=== PATIENT | female | born 1995 | race African-American/Black ===

== ENCOUNTER 2016-04-14 16:29 | Emergency (ER) | payer OTHER ==
[2016-04-14 16:47] VITALS: BP 137/68; PULSE 89; TEMP 98.2; BMI 18.6
[2016-04-14] MEDS ORDERED: TOBRAMYCIN 0.3% OPHTH SOLN 5 ML BOTTLE OD ONE (17:44)
--- NOTE | 2016-04-14 17:50 | PDOC ---
History of Present Illness - General Chief Complaint: Ear Problem Stated Complaint: RT EAR PAIN/RT EYE PAIN Time Seen by Provider: 04/14/16 16:43 History Source: Patient Exam Limitations: No Limitations - History of Present Illness Initial Comments: 04/14/16 17:45 Patient here with complaints of congestion to ears, crackling and popping sensation. And redness swelling and mild tenderness to the right eye. 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 - Psycho/Social/Smoking Cessation Hx Suicidal Ideation: No Smoking History: Never smoked Review of Systems - Review of Systems Able to Perform ROS?: Yes Is the patient limited Macanese proficient: Yes Constitutional: Yes: Symptoms Reported, See HPI, Malaise. No: Chills, Fever HEENTM: Yes: Symptoms Reported, See HPI, Eye Pain, Tearing (but no drainage thus far), Ear Pain (and crackling), Nose Congestion (with posterior sinus drainage). No: Blurred Vision Respiratory: Yes: See HPI. No: Cough Musculoskeletal: No: Symptoms Reported Neurological: Yes: Symptoms reported, See HPI, Headache (primarily frontal) All Other Systems: Reviewed and Negative *Physical Exam - Vital Signs Last Vital Signs Temp Pulse Resp BP Pulse Ox 98.2 F 89 19 137/68 99 04/14/16 16:44 04/14/16 16:44 04/14/16 16:44 04/14/16 16:44 04/14/16 16:44 - Physical Exam General Appearance: Yes: Nourished, Appropriately Dressed, Apparent Distress, Mild Distress HEENT: positive: PEDRO, TMs Normal, Pharynx Normal, Nasal Congestion, Rhinorrhea (clear ), Other (erythematous conjunctiva to the right eye, with tearing, and some purulent drainage noted. Vision is within normal limits.) Neck: positive: Supple, Lymphadenopathy (R), Lymphadenopathy (L). negative: Tender Respiratory/Chest: positive: Lungs Clear, Normal Breath Sounds. negative: Rhonchi, Wheezing Cardiovascular: positive: Regular Rate Gastrointestinal/Abdominal: positive: Normal Bowel Sounds, Soft Extremity: positive: Normal Capillary Refill, Normal Inspection, Normal Range of Motion Integumentary: positive: Dry Neurologic: positive: intravenous therapy nurse II-XII NML intact, Fully Oriented, Alert, Normal Mood/ Affect, Normal Response, Motor Strength 5/5 *DC/Admit/Observation/Transfer Diagnosis at time of Disposition: Conjunctivitis Qualifiers: Conjunctivitis type: acute Acute conjunctivitis type: bacterial Laterality: right Qualified Code(s): H10.31 - Unspecified acute conjunctivitis, right eye - Discharge Dispostion Disposition: HOME Condition at time of disposition: Stable Admit: No - Referrals Referrals: Esteban Pritchard MD [Primary Care Provider] - - Patient Instructions Printed Discharge Instructions: DI for Common Cold, DI for Conjunctivitis Additional Instructions: Rest, avoid rubbing eyes Wash hands frequently as this is very contagious Wash hands, use eye drops as directed, wash hands after use Do not share eyedrops with other person to may become infected as this will infect them Avoid contact with others until redness and discharge is gone from eyes. Followup with ophthalmology or private physician as needed TOBRAMYCIN drops 2 drops to right eye 4 times a day for 5 days Rest, drink lots of fluids: Teas, water, soups, Pedialyte Saltwater gargles Steamy showers/seem to face break up mucus Avoid contact with others until fevers and cough resolved Lots of handwashing and good hygiene Continue [id number] medications for symptomatic relief Tylenol or Motrin for fever and pain Followup with private physician in one to 2 days as needed Return to emergency department for worsened symptoms, fevers, dehydration - Post Discharge Activity Work/School Note: Back to Work
[2016-04-14] MEDS ORDERED: TOBRAMYCIN 0.3% OPHTH SOLN 5 ML BOTTLE ONE (17:51)
== END 2016-04-14 17:59 | disposition home or self-care (01) ==
LOC: JERFT 16:29
DX: H10.31 Unspecified acute conjunctivitis, right eye (principal); J06.9 Acute upper respiratory infection, unspecified
CPT/HCPCS: 99281-25

== ENCOUNTER 2016-08-01 12:18 | Emergency (ER) | payer OTHER ==
[2016-08-01 12:22] VITALS: BP 119/74; PULSE 96; TEMP 98.4; BMI 18.6
[2016-08-01] MEDS ORDERED: IBUPROFEN 400 MG TABLET (FP) PO ONE ×2 (12:48)
--- NOTE | 2016-08-01 12:51 | PDOC ---
History of Present Illness - General Chief Complaint: Sore Throat Stated Complaint: SORE THROAT Time Seen by Provider: 08/01/16 12:27 History Source: Patient - History of Present Illness Timing/Duration: reports: other Severity: reports: moderate Associated Symptoms: reports: earache, sore throat. denies: cough, facial pain , fever/chills, headache, nasal congestion, nasal drainage Past History - Past Medical History Allergies/Adverse Reactions: Allergies Allergy/AdvReac Type Severity Reaction Status Date / Time No Known Allergies Allergy Verified 08/01/16 12:22 Home Medications: Ambulatory Orders NK [No Known Home Medication] 04/14/16 Other medical history: PATIENT DENIES MEDICAL HISTORY - Psycho/Social/Smoking Cessation Hx Suicidal Ideation: No Smoking History: Never smoked Hx Alcohol Use: Yes (OCCASIONALLYT) Drug/Substance Use Hx: No Review of Systems - Review of Systems Constitutional: No: Chills, Fever HEENTM: Yes: Ear Pain, Throat Pain. No: Nose Congestion Respiratory: No: Cough *Physical Exam - Vital Signs Last Vital Signs Temp Pulse Resp BP Pulse Ox 98.4 F 96 H 18 119/74 98 08/01/16 12:19 08/01/16 12:19 08/01/16 12:19 08/01/16 12:19 08/01/16 12:19 - Physical Exam General Appearance: Yes: Appropriately Dressed. No: Apparent Distress HEENT: positive: Normal Voice, TMs Normal, Tonsillar Exudate. negative: Scleral Icterus (R), Scleral Icterus (L) Neck: positive: Supple. negative: Lymphadenopathy (R), Lymphadenopathy (L) Respiratory/Chest: negative: Respiratory Distress Medical Decision Making - Medical Decision Making 08/01/16 12:48 21-year-old female, no significant history here with sore throat w/ dysphagia and left ear pain x several days. Denies any fever or chills. No sick contacts. Patient well-appearing and stable with exam only remarkable for possible exudate to R tonsil, no e/o ECLECTIC DOCTOR. Most likely viral. Rapid strep pending. Pain controlled in ED 08/01/16 12:50 08/01/16 13:44 Rapid strep negative. Pt better w/ motrin, stable for discharge *DC/Admit/Observation/Transfer Diagnosis at time of Disposition: Viral pharyngitis - Discharge Dispostion Disposition: HOME Condition at time of disposition: Improved - Patient Instructions Printed Discharge Instructions: Viral Pharyngitis Additional Instructions: Your strep test was negative. Take 600mg motrin every 6 hrs for pain
== END 2016-08-01 14:03 | disposition home or self-care (01) ==
LOC: JERFT 12:18
DX: J02.9 Acute pharyngitis, unspecified (principal); B97.89 Other viral agents as the cause of diseases classified elsewhere
CPT/HCPCS: 87070; 87430; 99281-25

== ENCOUNTER 2016-08-25 07:56 | Emergency (ER) | payer OTHER ==
[2016-08-25 08:00] VITALS: BP 119/69; PULSE 99; TEMP 97.9; BMI 18.6
--- NOTE | 2016-08-25 08:35 | PDOC ---
History of Present Illness - General Chief Complaint: Eye Problem Stated Complaint: EYE PROBLEM Time Seen by Provider: 08/25/16 08:27 History Source: Patient Exam Limitations: No Limitations - History of Present Illness Initial Comments: 08/25/16 08:32 My chief complaint: Right eye discharge History of present illness: Patient is a 21-year-old female with no significant medical history here today complaining of having irritation to her right eye for a few days and today woke up with yellowish discharge from her right eye. Patient denies any change in her vision. Patient denies any nasal discharge, sore throat, cough or any fever or any other symptoms. 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 Timing/Duration: getting worse Severity: mild Past History - Past Medical History Allergies/Adverse Reactions: Allergies Allergy/AdvReac Type Severity Reaction Status Date / Time No Known Allergies Allergy Verified 08/25/16 08:00 Home Medications: Ambulatory Orders Tobramycin 0.3% Ophth Soln [Tobrex Ophthalmic Solution -] 1 drop OD Q6HPO #1 drops 08/25/16 Other medical history: denies - Psycho/Social/Smoking Cessation Hx Suicidal Ideation: No Smoking History: Never smoked Information on smoking cessation initiated: No Hx Alcohol Use: No Drug/Substance Use Hx: No Substance Use Type: None Review of Systems - Review of Systems Able to Perform ROS?: Yes Constitutional: No: Symptoms Reported HEENTM: Yes: Other (rt. eye discomfort with yellowish discharge today). No: Eye Pain, Blurred Vision, Ear Discharge, Nose Pain, Nose Congestion Respiratory: No: Symptoms reported Cardiac (ROS): No: Symptoms Reported ABD/GI: No: Symptoms Reported : No: Symptoms Reported Musculoskeletal: No: Symptoms Reported Integumentary: No: Symptoms Reported *Physical Exam - Vital Signs Last Vital Signs Temp Pulse Resp BP Pulse Ox 97.9 F 99 H 17 119/69 97 08/25/16 07:58 08/25/16 07:58 08/25/16 07:58 08/25/16 07:58 08/25/16 07:58 - Physical Exam General Appearance: Yes: Appropriately Dressed HEENT: positive: EOMI, PEDRO, TMs Normal, Other (rt. conjunctiva erythema ). negative: Pharyngeal Erythema, Tonsillar Exudate, Tonsillar Erythema Neck: negative: Lymphadenopathy (R), Lymphadenopathy (L) Respiratory/Chest: positive: Lungs Clear, Normal Breath Sounds. negative: Chest Tender, Respiratory Distress Cardiovascular: positive: Regular Rhythm, Regular Rate, S1, S2 Integumentary: positive: Normal Color Neurologic: positive: Alert, Normal Response Medical Decision Making - Medical Decision Making 08/25/16 08:35 Patient is a 21-year-old female with no significant medical history here today complaining of having irritation to her right eye for a few days and today woke up with yellowish discharge from her right eye. Patient denies any change in her vision. Patient denies any nasal discharge, sore throat, cough or any fever or any other symptoms. 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 Conjunctivitis rt. eye PLAN: Tobramycin 0.3% ophthalmic solution 2 drops and right eye every 6 hours 5 days Follow-up with your primary care provider within the next few days INstructed to Wash her hands frequently. *DC/Admit/Observation/Transfer Diagnosis at time of Disposition: Conjunctivitis Qualifiers: Conjunctivitis type: unspecified Laterality: right Qualified Code(s): H10.9 - Unspecified conjunctivitis - Discharge Dispostion Disposition: HOME Condition at time of disposition: Stable - Patient Instructions Additional Instructions: Follow up with Your primary care provider within the next few days Return to emergency room if symptoms worsen Wash her hands frequently especially after touching eyes Patient voiced understanding of discharge instructions and all questions were answered
== END 2016-08-25 09:02 | disposition home or self-care (01) ==
LOC: JERFT 07:56
DX: H10.31 Unspecified acute conjunctivitis, right eye (principal)
CPT/HCPCS: 99281-25

== ENCOUNTER 2017-11-08 19:06 | Emergency (ER) | payer OTHER ==
[2017-11-08 19:22] VITALS: TEMP 99.1; BMI 21.3
[2017-11-08 19:35] VITALS: BP 136/88; PULSE 91
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
--- NOTE | 2017-11-08 20:31 | PDOC ---
History of Present Illness - General Chief Complaint: Psychiatric Stated Complaint: PSYCHIATRIC Time Seen by Provider: 11/08/17 20:30 Past History - Past Medical History Allergies/Adverse Reactions: Allergies No Known Allergies Allergy (Verified 08/25/16 08:00) Home Medications: Ambulatory Orders Tobramycin 0.3% Ophth Soln [Tobrex Ophthalmic Solution -] 1 drop OD Q6HPO #1 drops 08/25/16 - Social History Smoking Status: Never smoked *Physical Exam - Vital Signs Last Vital Signs Temp Pulse Resp BP Pulse Ox 99.1 F 91 H 18 136/88 100 11/08/17 19:16 11/08/17 19:34 11/08/17 19:16 11/08/17 19:34 11/08/17 19:16 *DC/Admit/Observation/Transfer - Discharge Dispostion Condition at time of disposition: Guarded - Referrals Referrals: Esteban Pritchard MD [Primary Care Provider] - - Patient Instructions - Post Discharge Activity
[2017-11-08] MEDS ORDERED: ACETAMINOPHEN 500 MG TABLET (FP) PO ONE (21:09)
[2017-11-08] MEDS ORDERED: ACETAMINOPHEN 325 MG TABLET (FP) ONE (21:20)
[2017-11-08 21:25] LABS: URINE APPEARANCE CLEAR; URINE BILIRUBIN NEGATIVE (<2.0 mg/dL); URINE COLOR COLORLESS; URINE GLUCOSE (UA) NEGATIVE (NEGATIVE); URINE KETONE NEGATIVE (NEGATIVE); URINE LEUK ESTERASE NEGATIVE (NEGATIVE); URINE NITRITE NEGATIVE (NEGATIVE); URINE PROTEIN NEGATIVE (NEGATIVE); URINE UROBILINOGEN NEGATIVE mg/dL (0.2-1.0)
[2017-11-08] MEDS ORDERED: ALPRAZolam 0.25 MG TABLET PO ONE (22:14)
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
[2017-11-08] MEDS ORDERED: ALPRAZolam 0.25 MG TABLET ONE (22:27)
--- NOTE | 2017-11-09 08:05 | EKG ---
Test Reason : Blood Pressure : / mmHG Vent. Rate : 105 BPM Atrial Rate : 105 BPM P-R Int : 136 ms QRS Dur : 066 ms QT Int : 312 ms P-R-T Axes : 074 055 043 degrees QTc Int : 412 ms SINUS TACHYCARDIA OTHERWISE NORMAL ECG NO PREVIOUS ECGS AVAILABLE Confirmed by MELINDA ARMENTA, TUAN ([id number]) on 11/09/2017 8:04:42 AM Referred By: Confirmed By:TUAN LAWRENCE MD
== END 2017-11-08 22:30 | disposition home or self-care (01) ==
LOC: JER 19:06
DX: F41.0 Panic disorder [episodic paroxysmal anxiety] (principal); R00.2 Palpitations
CPT/HCPCS: 36415; 81003; 84703; 93005; 93010; 99282-25

== ENCOUNTER 2017-11-21 16:20 | Emergency (ER) | payer OTHER ==
[2017-11-21 16:23] VITALS: BP 118/75; PULSE 90; TEMP 98.4; BMI 18.8
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
== END 2017-11-21 17:03 | disposition home or self-care (01) ==
LOC: JERFT 16:20
DX: S16.1XXA Strain of muscle, fascia and tendon at neck level, initial encounter (principal); X58.XXXA Exposure to other specified factors, initial encounter; Y92.9 Unspecified place or not applicable
CPT/HCPCS: 99281-25

== ENCOUNTER 2018-08-20 23:40 | Emergency (ER) | payer OTHER ==
[2018-08-21 00:01] VITALS: BMI 19.8
--- NOTE | 2018-08-21 00:57 | PDOC ---
History of Present Illness - General Chief Complaint: Lightheaded Stated Complaint: DIZZINESS Time Seen by Provider: 08/21/18 00:57 History Source: Patient - History of Present Illness Initial Comments: 08/21/18 01:08 23 year old female with dizziness since 10 pm worse with position changes. reports eating dinner at 9.30pm. reports being hydrated, Pmhx: anxiety lmp: 1 week ago. on OCP Past History - Past Medical History Allergies/Adverse Reactions: Allergies Allergy/AdvReac Type Severity Reaction Status Date / Time No Known Allergies Allergy Verified 08/21/18 00:01 Home Medications: Ambulatory Orders Ibuprofen [Motrin -] 600 mg PO TID #30 tablet 11/21/17 COPD: No CHF: No DVT: No - Suicide/Smoking/Psychosocial Hx Smoking History: Never smoked Have you smoked in the past 12 months: No Information on smoking cessation initiated: No Hx Alcohol Use: No Drug/Substance Use Hx: No Substance Use Type: None Review of Systems - Review of Systems Able to Perform ROS?: Yes Is the patient limited Swazi proficient: No Constitutional: No: Symptoms Reported, See HPI, Chills, Diaphoresis, Fever, Loss of Appetite, Malaise, Night Sweats, Weakness, Weight Stable, Unintentional Wgt. Loss, Unexplained wgt Loss, Other Cardiac (ROS): Yes: Lightheadedness. No: Symptoms Reported, See HPI, Chest Pain , Edema, Irregular Heart Rate, Palpitations, Syncope, Chest Tightness, Other Neurological: No: Symptoms reported, See HPI, Headache, Numbness, Paresthesia, Pre-Existing Deficit, Seizure, Tingling, Tremors, Weakness, Unsteady Gait, Ataxia, Dizziness, Other *Physical Exam - Vital Signs Last Vital Signs Temp Pulse Resp BP Pulse Ox 98.7 F 90 16 131/83 99 08/20/18 23:42 08/20/18 23:42 08/20/18 23:42 08/20/18 23:42 08/20/18 23:42 08/21/18 04:18 Vital Signs 08/20/18 08/21/18 08/21/18 23:42 01:44 01:45 Temperature 98.7 F 99.7 F H Pulse Rate 90 Pulse Rate [ 76 Left Radial] Pulse Rate [ 76 Right side Sitting] Pulse Rate [ 84 Right side Standing] Pulse Rate [ 72 Right side Supine] Respiratory 16 Rate Blood Pressure 131/83 Blood Pressure 116/84 [Right Arm] Blood Pressure 116/84 [Right side Sitting] Blood Pressure 139/91 [Right side Standing] Blood Pressure 126/82 [Right side Supine] O2 Sat by Pulse 99 97 Oximetry (%) 08/21/18 02:39 supine Temperature 99.1 F Pulse Rate Pulse Rate [ 75 Left Radial] Pulse Rate [ Right side Sitting] Pulse Rate [ Right side Standing] Pulse Rate [ Right side Supine] Respiratory 16 Rate Blood Pressure Blood Pressure 121/73 [Right Arm] Blood Pressure [Right side Sitting] Blood Pressure [Right side Standing] Blood Pressure [Right side Supine] O2 Sat by Pulse 98 Oximetry (%) - Physical Exam General Appearance: Yes: Appropriately Dressed HEENT: positive: Other (no kisha [place]. ) Respiratory/Chest: positive: Lungs Clear, Normal Breath Sounds Cardiovascular: positive: Regular Rhythm, Regular Rate Gastrointestinal/Abdominal: positive: Normal Bowel Sounds, Soft. negative: Tender Musculoskeletal: positive: Normal Inspection Medical Decision Making - Medical Decision Making 08/21/18 02:39 A: dizziness P: ua / UCG orthostatic po hydration EKG: NSR *DC/Admit/Observation/Transfer Diagnosis at time of Disposition: Orthostatic dizziness - Discharge Dispostion Disposition: HOME Condition at time of disposition: Fair - Referrals Referrals: Abdoulaye Saldivar MD [Primary Care Provider] - Call tomorrow - Patient Instructions Printed Discharge Instructions: Orthostatic Hypotension Additional Instructions: Drink plenty of fluids. Slowly get up from sitting to standing and laying to sitting. Return to the emergency room for any worsening symptoms. All your tests results were negative here. Please follow up with your primary doctor as soon as possible. - Post Discharge Activity Forms/Work/School Notes: Back to Work
[2018-08-21 01:28] LABS: PH,URINE 7.5 (5.0-8.0); URINE APPEARANCE CLEAR; URINE BILIRUBIN NEGATIVE (NEGATIVE); URINE COLOR YELLOW; URINE GLUCOSE (UA) NEGATIVE (NEGATIVE); URINE KETONE NEGATIVE (NEGATIVE); URINE LEUK ESTERASE NEGATIVE (NEGATIVE); URINE NITRITE NEGATIVE (NEGATIVE); URINE PROTEIN NEGATIVE (NEGATIVE); URINE UROBILINOGEN 0.2 mg/dL (0.2-1.0)
[2018-08-21 01:31] LABS: HCG,QUALITATIVE URINE Negative
[2018-08-21 02:40] VITALS: BP 121/73; PULSE 75; TEMP 99.1
--- NOTE | 2018-08-21 10:44 | EKG ---
Test Reason : Blood Pressure : / mmHG Vent. Rate : 071 BPM Atrial Rate : 071 BPM P-R Int : 182 ms QRS Dur : 072 ms QT Int : 372 ms P-R-T Axes : 074 063 050 degrees QTc Int : 404 ms NORMAL SINUS RHYTHM NORMAL ECG WHEN COMPARED WITH ECG OF 08-NOV-2017 19:24, NO SIGNIFICANT CHANGE WAS FOUND Confirmed by TUAN LAWRENCE MD ([id number]) on 08/21/2018 10:44:02 AM Referred By: Confirmed By:TUAN LAWRENCE MD
== END 2018-08-21 03:29 | disposition home or self-care (01) ==
LOC: JER 23:40
DX: I95.1 Orthostatic hypotension (principal)
CPT/HCPCS: 81003; 82962; 84703; 93005; 93010; 99282-25

== ENCOUNTER 2019-04-17 15:05 | Emergency (ER) | payer OTHER ==
[2019-04-17 15:16] VITALS: BP 115/81; PULSE 82; TEMP 98.1; BMI 19.8
--- NOTE | 2019-04-17 15:44 | PDOC ---
Attending Attestation - Resident Resident Name: Ortiz Bai - ED Attending Attestation I have performed the following: I have examined & evaluated the patient, The case was reviewed & discussed with the resident, I agree w/resident's findings & plan, Exceptions are as noted - HPI HPI: 04/17/19 15:39 23y F no pmhx presnets with complaint of possible dislocation. Patient states she has a history of recurrent "knee dislocations", That typically resolves spontaneously when she straightens out her leg. Patient states that it often dislocates from activities such as moving her leg wrong or stepping wrong or dancing. Denies any prior significant trauma Occluding MVAs, contact sports. Patient states that she is typically able to Straighten her leg hear a click and then ambulate shortly afterwards and continue her activity. Patient states that today she was sitting with her right leg folded under her and she got up to answer a phone call and felt her leg "dislocate". She had some sudden onset of right knee pain, so she presents to the ER. Patient denies any numbness, tingling, weakness. She denies ever looking at her knee so she is unsure if there is ever any dislocation. But she states that she has never Sought medical attention for this before. Patient denies any other injuries including falls, head injury, Other extremity pain, headache, neck pain, back pain. Exam: GENERAL: The patient is awake, alert, and fully oriented, Nontoxic - in no acute distress. HEAD: Normocephalic, atraumatic. EXTREMITIES: Normal left lower extremity exam including normal range of motion of the hip, knee, ankle without any focal tenderness, Normal flexion extension of the right hip, R ankle. Mild diffuse tenderness of the right knee without any focality, there is no suggestion of effusion, edema,warmth, focal bony tenderness on her right knee. Anatomical normal position of knee/patella. Neurovascularly intact distally. There is no edema of the calf, neg homans sign. Distal pedal pulses were intact bl NEUROLOGICAL: No facial assymetry, Normal speech, PSYCH: Normal mood, normal affect. SKIN: Warm, Dry, normal turgor, - Physicial Exam PE: 04/17/19 18:49 see above - Medical Decision Making 04/17/19 16:16 ap: 23 y F presents with recurrent knee pain episodes - I am doubtful that these are true knee dislocations based on Lack of trauma and force associated with these episodes, And that she is usually able to strain her leg out to fix the problem and then continue with her normal activities including dancing. Suspect possible knee strain or arthritis She has a normal knee exam without any effusion or edema. Obtain x-ray to screen for pathology, give Tylenol for pain. If negative and patient is feeling better anticipate follow-up with orthopedics 04/17/19 18:48 The patient complains of persistent discomfort in the knee however she is able to flex and extend. The patient was discharged with an Yandel wrap and follow-up with orthopedics. There is no clinical signs of infection, DVT, effusion, Or acute bony abnormality.
[2019-04-17] MEDS ORDERED: ACETAMINOPHEN 500 MG TABLET (FP) PO ONE (15:53)
[2019-04-17] MEDS ORDERED: ACETAMINOPHEN 325 MG TABLET (FP) ONE (15:56)
--- NOTE | 2019-04-17 16:19 | PDOC ---
History of Present Illness - General Chief Complaint: Injury Stated Complaint: RIGHT KNEE INJURY Time Seen by Provider: 04/17/19 15:18 History Source: Patient Exam Limitations: No Limitations - History of Present Illness Initial Comments: 23F no PMH presenting with right knee pain after getting up from seated position. Pt has h/o similar presentation but states she usually resolves sx with full knee extension. Today she extended her knee but did not feel the typical click back into place. Endorses posterior and lateral knee pain. Denies numbness, tingling, weakness. Past History - Past Medical History Allergies/Adverse Reactions: Allergies Allergy/AdvReac Type Severity Reaction Status Date / Time No Known Allergies Allergy Verified 04/17/19 15:11 Home Medications: Ambulatory Orders Norethindrone-E.estradiol-Iron [Lo Loestrin Fe 1-10 Tablet] 1 tab PO DAILY 04/17 COPD: No CHF: No DVT: No - Immunization History Immunization Up to Date: Yes - Psycho Social/Smoking Cessation Hx Smoking History: Never smoked Have you smoked in the past 12 months: No Information on smoking cessation initiated: No Hx Alcohol Use: (occasional) Drug/Substance Use Hx: No Substance Use Type: None Review of Systems - Review of Systems Able to Perform ROS?: Yes Comments:: CONSTITUTIONAL: Denies F / C SKIN: Denies rashes NEURO: Denies numbness, tingling, weakness MSK: endorses right knee pain. Denies hip, pelvic, or foot pain. *Physical Exam - Vital Signs Last Vital Signs Temp Pulse Resp BP Pulse Ox 98.1 F 82 18 115/81 100 04/17/19 15:05 04/17/19 15:05 04/17/19 15:05 04/17/19 15:05 04/17/19 15:05 - Physical Exam GEN: NAD, comfortable. AAOx3. HEENT: NC/AT. No facial asymmetry. Moist mucous membranes. Normal voice. Supple neck w/ FROM. CV: S1/S2, RRR LUNG: CTAB GI: Soft, ndnt, +BS, no guarding, no rebound. MSK: 2+ distal pulses. No LE edema - no effusions or erythema of the right knee. No obvious deformities of all extremities. Good ROM passively. Cannot assess active ROM 2/2 pain. Good cap. refill. SKIN: Warm, dry, no rashes appreciated. PSYCH: Normal mood and affect. NEURO: Moving all extremities well. symmetric sensation. 5/5 dorsi/plantar flexion b/l. 5/5 LLE strength and ROM. Strength assessment of RLE limited 2/2 pain; ROM limited 2/2 pain. ED Treatment Course - RADIOLOGY Radiology Studies Ordered: Category Date Time Status KNEE 3 POS-RIGHT [RAD] Stat Radiology 04/17/19 15:53 Ordered - Medications Given in the ED: ED Medications Discontinued Medications Generic Name Dose Route Start Last Admin Trade Name Sara PRN Reason Stop Dose Admin Acetaminophen 975 mg 04/17/19 15:53 04/17/19 15:58 Tylenol - PO 04/17/19 15:54 975 mg ONCE ONE Administration Medical Decision Making - Medical Decision Making 04/17/19 16:20 23F right knee pain after getting up from seated position XR pain ctrl 04/17/19 18:13 XR w/o acute fx pain better controlled s/p tramadol and toradol attempt to ambulate 04/17/19 18:42 knee ORIN wrapped pt instructed on crutch use and demonstrated proper crutch use DC home, ortho f/u Discharge - Discharge Information Problems reviewed: Yes Clinical Impression/Diagnosis: Knee pain Qualifiers: Chronicity: acute Laterality: right Qualified Code(s): M25.561 - Pain in right knee Condition: Stable Disposition: HOME - Admission No - Follow up/Referral Referrals: Juan Ferrer DO [Staff Physician] - Bill Good DO [Staff Physician] - - Patient Discharge Instructions Patient Printed Discharge Instructions: DI for Knee Pain Additional Instructions: Take ibuprofen 400mg every 6 hours for pain. Alternate this with tylenol 1000mg every 6 hours. E.g. 12pm Tylenol; 3pm Ibuprofen; 6pm Tylenol; 9pm Ibuprofen Ice the affected area; 20 minutes on and 20 minutes off. Elevate the affected leg when you are not walking around. Try to range (bend) your right knee as tolerated. Weight bear on your right leg as tolerated. Follow up with Orthopedics in the next 1-2 days. You may call the below number to schedule an appointment with the orthopedists we are referring you to. See your primary care doctor in the next 7-14 days. Return to the Emergency Department if you experience: - worsening pain - redness of the knee or leg - numbness or tingling of the foot - color change of your leg - chest pain, shortness of breath, fevers - anything that concerns you - Post Discharge Activity Work/Back to School Note: Back to Work
[2019-04-17] MEDS ORDERED: KETOROLAC TROMETHAMINE 30 MG/1 ML VIAL IM ONE (17:18)
[2019-04-17] MEDS ORDERED: traMADol HCL 50 MG TABLET PO ONE (17:18)
[2019-04-17] MEDS ORDERED: traMADol HCL 50 MG TABLET ONE (17:26)
[2019-04-17] MEDS ORDERED: KETOROLAC TROMETHAMINE 30 MG/1 ML VIAL ONE (17:26)
== END 2019-04-17 19:00 | disposition home or self-care (01) ==
LOC: FER 15:05
PROC: 3E0233Z Introduction of Anti-inflammatory into Muscle, Percutaneous Approach (ICD-10-PCS; principal; 2019-04-17)
DX: M25.561 Pain in right knee (principal)
CPT/HCPCS: 73562-TC-RT-FY; 96372; 99284-25

== ENCOUNTER 2019-04-25 14:34 | Day surgery (SDC) | payer OTHER ==
[2019-04-23 15:46] VITALS: BMI 19.8
[2019-04-25] MEDS ORDERED: oxyCODONE HCL 5 MG TABLET PO PRN ×2 (16:55)
[2019-04-25] MEDS ORDERED: ACETAMINOPHEN 325 MG TABLET (FP) PO PRN (16:55)
[2019-04-25] MEDS ORDERED: PROMETHAZINE HCL 25 MG/1 ML VIAL IVPUSH PRN (16:55)
[2019-04-25] MEDS ORDERED: ONDANSETRON 4 MG/2 ML VIAL IVPUSH PRN (16:55)
[2019-04-25] MEDS ORDERED: LIDOCAINE HCL/PF 2% SDV 5ML VIAL ONE (17:00)
[2019-04-25] MEDS ORDERED: PROPOFOL 20 ML ONE ×3 (17:00→17:14)
[2019-04-25] MEDS ORDERED: LACTATED RINGERS SOLUTION 1,000 ML IV SCH (17:00)
[2019-04-25] MEDS ORDERED: MIDAZOLAM HCL 2 MG/2 ML SINGLE DOSE VIAL ONE (17:14)
[2019-04-25] MEDS ORDERED: ceFAZolin SODIUM 1 GM VIAL ONE (17:30)
[2019-04-25] MEDS ORDERED: ONDANSETRON 4 MG/2 ML VIAL ONE (17:32)
[2019-04-25] MEDS ORDERED: DEXAMETHASONE SOD PHOSPHATE 4 MG/1 ML VIAL ONE (17:32)
[2019-04-25] MEDS ORDERED: EPHEDRINE SULFATE/0.9% NACL/PF 50 MG/10 ML SYRINGE NR ONE (17:45)
[2019-04-25] MEDS ORDERED: BUPIVACAINE HCL/PF 2.5 MG/ML - 30 ML VIAL IJ ONE (18:01)
--- NOTE | 2019-04-25 18:56 | HP ---
History & Physical Update - History History: No Change - Physical Physical: No Change - Assessment Assessment: No Change - Plan Plan: No Change
--- NOTE | 2019-04-25 18:57 | OPR ---
DATE OF PROCEDURE: 04/25/2019 TITLE OF OPERATION: Right knee diagnostic arthroscopy, lateral meniscus repair, chondroplasty lateral femoral condyle, synovectomy patellofemoral compartment. PREOPERATIVE DIAGNOSIS: Right knee bucket handle lateral meniscus tear, synovitis. POSTOPERATIVE DIAGNOSIS: Right knee bucket handle lateral meniscus tear, synovitis. SURGEON: Juan Ferrer DO WOMEN'S GARMENT FITTER: Bill Good DO ANESTHESIA: General anesthesia LMA SPECIMEN (BACTERIOLOGICAL, PATHOLOGICAL OR OTHER): Meniscus shavings PROSTHETIC DEVICE/IMPLANT: S[employer]N Fast Fix 360 anchors x 3 COMPLICATIONS: none EBL: minimal TOURNIQUET TIME: n/a INDICATIONS FOR SURGERY: Camryn Ashraf is a 23-year-old female who presented in the preoperative setting with a chief complaint of right knee pain and locked knee. She was diagnosed with a bucket handle lateral meniscus tear. Based on her pre-injury level of activity, surgical treatment was discussed. The risks and benefits of surgery and anesthesia were discussed in detail including but not limited to continued pain, bleeding, infection, scarring, damage to vessels and nerves, MCL tear, failure to obtain the desired result, failure to heal, failure to return to sport or work, and possibility of additional surgery. Understanding the risks and benefits, she opted to proceed with surgical management. SURGEONS NARRATIVE: After informed consent was obtained patient was brought to the operating room prepped and draped in usual fashion sterile technique. A timeout was called, site verification was performed and perioperative antibiotics were administered. Examination under anesthesia revealed a negative Sheela, negative pivot shift and negative anterior drawer test. Diagnostic arthroscopy was performed through standard anterolateral portal. The 4 mm 30 scope was inserted the knee joint without difficulty. This revealed no significant patellar chondromalacia, but there was mild synovitis in the patellofemoral compartment. Within the lateral compartment the patient had a chondral injury of the lateral femoral condyle, as well as synovitis. There was a bucket handle tear of the lateral meniscus that was flipped into the joint, which spontaneously reduced. An anteromedial portal was created, and a probe was introduced into the joint. The tear was shown to be in the in the red red zone with a 2 mm peripheral rim. The tear measured 2 cm in width. Using 3 Fast-Fix 360 anchors, I successfully repaired the lateral meniscus by placing 2 vertical mattress sutures in the meniscus evenly spaced in the posterior horn of the meniscus at the site of the tear. I then placed 1 horizontal undersurface anchors to address the undersurface portion of the tear at the posterior horn. I then probed the lateral meniscus and found to be stable and anatomically positioned. I used an arthroscopic shaver to perform a limited synovectomy and chondroplasty of the lateral femoral condyle chondromalacia. Examination of the notch demonstrated an intact ACL and PCL. I then turned my attention to the medial compartment the patient had no significant chondromalacia with no meniscal tearing. I then entered the patellofemoral joint and performed a synovectomy. This completed the procedure, and all arthroscopic tools were removed from the joint. I then closed incisions with 3-0 nylon. A sterile dressing was placed, including xeroform, 4x4s and ABD padding with an ORIN bandage. The patient was placed in a hinged knee ROM brace locked in full extension. Patient tolerated procedure well and arrived recovery in stable condition. The patient will follow up in my office in 10 days for suture removal. The patient will remain TTWB with crutches; She was given a prescription for physical therapy, and a strict PT protocol to follow. I discussed the case with the patient's mother over the phone after the procedure. Dr. Good acted as promotions assistant due to no other resident or qualified clinical laboratory assistant being available. Juan Ferrer DO
[2019-04-25] MEDS ORDERED: oxyCODONE HCL 5 MG TABLET ONE (19:18)
[2019-04-25 20:55] VITALS: BP 126/72; PULSE 79; TEMP 97.9
--- NOTE | 2019-04-29 17:39 | PATH ---
Surgical Pathology Report Patient Name: NILDA [facility]. Rec. #: [id number] /Age/Gender: 1995 (Age: 23) / F Account: [id number] Location: [facility] Taken: 04/25/2019 Received: 04/25/2019 Reported: 04/29/2019 Physicians: Juan Ferrer MD Specimen(s) Received RIGHT KNEE SHAVINGS Clinical History Lateral meniscus tear Final Diagnosis KNEE SHAVINGS, RIGHT, LATERAL MENISCUS REPAIR, CHONDROPLASTY, SYNOVECTOMY: FRAGMENTS OF CARTILAGE, DENSE FIBROCONNECTIVE TISSUE, ADIPOSE TISSUE, AND SYNOVIUM. Electronically Signed Mirela Hernandez M.D. Gross Description Received in formalin, labeled "right knee shavings," is a 4.0 x 3.0 x 0.4 cm. aggregate of mackey-yellow soft tissue fragments. A printing sales representative portion is submitted in one cassette. 04/28/2019 saudi04/28/2019
== END 2019-04-25 20:55 | disposition home or self-care (01) ==
LOC: FASU 14:34
PROVIDERS: ATTEND Orthopaedic Surgery Sports Medicine
PROC: 0SBC4ZZ Excision of Right Knee Joint, Percutaneous Endoscopic Approach (ICD-10-PCS; 2019-04-25)
PROC: 0SQC4ZZ Repair Right Knee Joint, Percutaneous Endoscopic Approach (ICD-10-PCS; principal; 2019-04-25 17:49)
DX: S83.211A Bucket-handle tear of medial meniscus, current injury, right knee, initial encounter (principal); M65.861 Other synovitis and tenosynovitis, right lower leg; X58.XXXA Exposure to other specified factors, initial encounter; Y93.9 Activity, unspecified; Y92.9 Unspecified place or not applicable
CPT/HCPCS: 84703; 88304-TC; 94760

== ENCOUNTER 2021-07-20 04:23 | Day surgery (SDC) | payer OTHER ==
[2021-07-14 17:34] VITALS: BMI 19.7
[2021-07-20] MEDS ORDERED: ACETAMINOPHEN 325 MG TABLET (FP) PO PRN (12:16)
[2021-07-20] MEDS ORDERED: IBUPROFEN 400 MG TABLET (FP) PO PRN (12:16)
[2021-07-20] MEDS ORDERED: oxyCODONE HCL 5 MG TABLET PO PRN ×2 (12:16→17:32)
[2021-07-20] MEDS ORDERED: PROPOFOL 20 ML ONE ×2 (15:30→15:51)
[2021-07-20] MEDS ORDERED: MIDAZOLAM HCL 2 MG/2 ML SINGLE DOSE VIAL ONE (15:30)
[2021-07-20] MEDS ORDERED: FENTANYL CITRATE/PF 50 MCG/ML VIAL ONE ×2 (15:30)
[2021-07-20] MEDS ORDERED: ceFAZolin SODIUM 1 GM VIAL IVPB ONE (15:40)
[2021-07-20] MEDS ORDERED: ONDANSETRON 4 MG/2 ML VIAL IVPUSH PRN (17:32)
[2021-07-20 18:49] VITALS: BP 124/81; PULSE 84; TEMP 98.3
== END 2021-07-20 18:44 | disposition home or self-care (01) ==
LOC: JASU-SURG 04:23
PROVIDERS: ATTEND Obstetrics & Gynecology
PROC: 0UBC7ZX Excision of Cervix, Via Natural or Artificial Opening, Diagnostic (ICD-10-PCS; principal; 2021-07-20 14:00)
DX: D06.9 Carcinoma in situ of cervix, unspecified (principal)
CPT/HCPCS: 81025; 88305-TC; 88307-TC; 94760

== ENCOUNTER 2022-11-26 00:12 | Emergency (ER) | payer OTHER ==
[2022-11-26 00:27] VITALS: RESP 18; BMI 19.8
[2022-11-26] MEDS ORDERED: LORazepam 2 MG TABLET PO ONE (01:23)
[2022-11-26] MEDS ORDERED: SODIUM CHLORIDE 0.9% 500 ML INFUS.BAG IV ONE (01:34)
[2022-11-26 01:44] LABS: BASO % 0.6 % (0-2.0); EOS % 1.3 % (0-4.5); HEMATOCRIT 40.7 % (32.4-45.2); HEMOGLOBIN 14.1 GM/dL (10.7-15.3); LYMPH % 46.2 % (8-40); MCH 30.8 pg (25.7-33.7); MCHC 34.7 g/dl (32.0-36.0); MEAN CELL VOLUME 88.8 fl (80-96); MEAN PLT VOLUME 6.8 fl (7.5-11.1); MONO % 5.6 % (3.8-10.2); NEUT % 46.3 % (42.8-82.8); PLATELET COUNT 324 10^3/uL (134-434); RBC 4.59 M/mm3 (3.60-5.2); RDW 12.7 % (11.6-15.6); WHITE BLOOD COUNT 5.2 K/mm3 (4.0-10.0)
[2022-11-26 02:16] LABS: POTASSIUM 4.3 mmol/L (3.5-5.1)
[2022-11-26 02:18] LABS: ALBUMIN 3.6 g/dl (3.4-5.0); CALCIUM 8.7 mg/dL (8.5-10.1)
[2022-11-26 02:19] LABS: BLOOD UREA NITROGEN 6.3 mg/dL (7-18)
[2022-11-26 02:22] LABS: CREATININE 0.8 mg/dL (0.55-1.3)
[2022-11-26 02:23] LABS: BILIRUBIN,TOTAL 0.6 mg/dL (0.2-1); TOT PROT 7.9 g/dl (6.4-8.2)
[2022-11-26 02:32] VITALS: BP 124/84; PULSE 71; TEMP 98.4
== END 2022-11-26 02:36 | disposition home or self-care (01) ==
LOC: JER 00:12
DX: R20.2 Paresthesia of skin (principal); R42 Dizziness and giddiness; E86.0 Dehydration; H53.8 Other visual disturbances
CPT/HCPCS: 36415; 80053; 85025; 99284-25